=== PATIENT | female | born 1965 | race Two or more races ===

== ENCOUNTER 2023-06-18 17:52 | Emergency (ER) | payer OTHER ==
[~2023-06-18] VITALS: Ht 170.2 cm; Wt 102.5 kg
[2023-06-18] MEDS ORDERED: GLUCOTROL XL5 MG PO (18:08)
[2023-06-18] MEDS ORDERED: JENTADUETO 2.51 EAC2 PO (18:08)
[2023-06-18] MEDS ORDERED: LEVO-T25 MCG PO (18:09)
[2023-06-18] MEDS ORDERED: COZAAR100 MG PO (18:09)
[2023-06-18] MEDS ORDERED: SINGULAIR10 MG PO (18:09)
== END 2023-06-18 21:08 | disposition home or self-care (01) ==
LOC: ER 17:53
DX: S00.83XA Contusion of other part of head, initial encounter (principal); W18.39XA Other fall on same level, initial encounter; Y93.89 Activity, other specified; Y92.89 Other specified places as the place of occurrence of the external cause; Y99.9 Unspecified external cause status; E11.9 Type 2 diabetes mellitus without complications; Z79.84 Long term (current) use of oral hypoglycemic drugs; I10 Essential (primary) hypertension; M25.561 Pain in right knee; M25.562 Pain in left knee; Z91.013 Allergy to seafood